=== PATIENT | male | born 1995 | race Asian ===

== ENCOUNTER 2019-09-18 09:34 | Emergency (ER) | payer OTHER ==
[2019-09-18 09:40] VITALS: BP 155/96
--- NOTE | 2019-09-18 10:20 | ED ---
Lower Extremity - HPI Summary HPI Summary: This patient is a 23 year old M presenting to ED with a chief complaint of left ankle pain with swelling since three days ago. Patient was rock-climbing indoors and reports falling off the wall about 8 feet and landing awkwardly on the foot with twisting medially. He denies any pain in the back, legs, neck, or anywhere else. The patient rates the pain 4/10 in severity. Symptoms aggravated by nothing. Symptoms alleviated by nothing. Patient denies fever. - History of Current Complaint Chief Complaint: EDExtremityLower Stated Complaint: LEFT ANKLE INJURY PER PT Time Seen by Provider: 09/18/19 10:12 Hx Obtained From: Patient Mechanism Of Injury: Fall From Height Of: - 8 feet Onset of Pain: Immediate, Post Accident Onset/Duration: Still Present - Since 3 days ago Severity Initially: Moderate Severity Currently: Moderate Pain Intensity: 4 Pain Scale Used: 0-10 Numeric Timing: Constant, Lasting Days - Since 3 days ago Location: Is Discrete @ - Left ankle Associated Signs And Symptoms: Positive: Negative - Back pain. leg pain, neck pain, Swelling. Negative: Fever, Knee Pain Aggravating Factor(s): Nothing Alleviating Factor(s): Nothing Able to Bear Weight: Yes - Allergies/Home Medications Allergies/Adverse Reactions: Allergies Allergy/AdvReac Type Severity Reaction Status Date / Time No Known Allergies Allergy Verified 09/18/19 09:39 PMH/Surg Hx/FS Hx/Imm Hx Endocrine/Hematology History: Denies: Hx Diabetes Cardiovascular History: Denies: Hx Hypercholesterolemia, Hx Hypertension Sensory History: Denies: Hx Legally Blind, Hx Deafness Opthamlomology History: Denies: Hx Legally Blind EENT History: Denies: Hx Deafness - Surgical History Surgery Procedure, Year, and Place: Denies Infectious Disease History: No Infectious Disease History: Denies: Traveled Outside the [place] in Last 30 Days - Family History Known Family History: Positive: Diabetes - Social History Alcohol Use: Occasionally Hx Substance Use: No Substance Use Type: Reports: None Hx Tobacco Use: No Smoking Status (MU): Never Smoked Tobacco Review of Systems Negative: Fever Musculoskeletal: Negative - Back, leg, or neck pain, Other - Left ankle pain All Other Systems Reviewed And Are Negative: Yes Physical Exam - Summary Physical Exam Summary: VITAL SIGNS: Reviewed. GENERAL: Patient is a well-developed and nourished male who is lying comfortable in the stretcher. Patient is not in any acute respiratory distress. HEAD AND FACE: No signs of trauma. No ecchymosis, hematomas or skull depressions. No sinus tenderness. EYES: PERRLA, EOMI x 2, No injected conjunctiva, no nystagmus. EARS: Hearing grossly intact. Ear canals and tympanic membranes are within normal limits. MOUTH: Oropharynx within normal limits. NECK: Supple, trachea is midline, no adenopathy, no JVD, no carotid bruit, no c- spine tenderness, neck with full ROM. CHEST: Symmetric, no tenderness at palpation. LUNGS: Clear to auscultation bilaterally. No wheezing or crackles. CVS: Regular rate and rhythm, S1 and S2 present, no murmurs or gallops appreciated. ABDOMEN: Soft, non-tender. No signs of distention. No rebound, no guarding, and no masses palpated. Bowel sounds are normal. EXTREMITIES: Swelling and tenderness around the left lateral malleolus. Good pulses and good capillary refill. NEURO: Alert and oriented x 3. No acute neurological deficits. Speech is normal and follows commands. SKIN: Dry and warm. Triage Information Reviewed: Yes Vital Signs On Initial Exam: Initial Vitals Temp Pulse Resp BP Pulse Ox 97.9 F 74 16 155/96 99 09/18/19 09:37 09/18/19 09:37 09/18/19 09:37 09/18/19 09:37 09/18/19 09:37 Vital Signs Reviewed: Yes Procedures - Sedation Patient Received Moderate/Deep Sedation with Procedure: No Diagnostics - Vital Signs Vital Signs Temp Pulse Resp BP Pulse Ox 09/18/19 09:37 97.9 F 74 16 155/96 99 - Laboratory Lab Statement: Any lab studies that have been ordered have been reviewed, and results considered in the medical decision making process. - Radiology L ankle XR Radiology Interpretation Completed By: Radiologist Summary of Radiographic Findings: Soft tissue swelling with no fracture identified. Dr. Gates has reviewed this radiology report. L foot XR Radiology Interpretation Completed By: Radiologist Summary of Radiographic Findings: SOFT TISSUE SWELLING ABOUT THE ANKLE. NO FRACTURE IDENTIFIED. Dr. Gates has reviewed this radiology report. Re-Evaluation - Re-Evaluation First Eval Re-Evaluation Time: 11:46 Comment: Discussed results with patient. Patient will be discharged home with dx of left ankle sprain. Recommended ice, rest, elevate and Ibuprofen for pain. Patient understands and agrees with this plan. Lower Extremity Course/Dx - Course Assessment/Plan: This patient is a 23 year old M presenting to ED with a chief complaint of left ankle pain with swelling since three days ago. Patient was rock-climbing indoors and reports falling off the wall about 8 feet and landing awkwardly on the foot with twisting medially. He denies any pain in the back, legs, neck, or anywhere else. The patient rates the pain 4/10 in severity. Symptoms aggravated by nothing. Symptoms alleviated by nothing. Patient denies fever. Foot and ankle x ray IMPRESSION: SOFT TISSUE SWELLING ABOUT THE ANKLE. NO FRACTURE IDENTIFIED. Patient is ambulatory. Recommends Ice, rest, elevate and Ibuprofen for pain. Plan of care was discussed with the patient and understands and agrees. All questions were answered at patient satisfaction. There were no further complaints or concerns. Lung exam before discharge: CTA B/ L. Good air exchange. No wheezing or crackles heard. CVS: S1 and S2 present. No murmurs appreciated. Patient is alert and oriented x 3. Patient is hemodynamically stable. Patient will be discharged home with follow up PCP in the next 2-3 days. - Diagnoses Provider Diagnoses: Left ankle sprain Discharge ED - Sign-Out/Discharge Documenting (check all that apply): Patient Departure - Discharge - Discharge Plan Condition: Stable Disposition: HOME Patient Education Materials: Ankle Sprain (ED) Referrals: [facility] - Leroy MADRID [Primary Care Provider] - 3 Days Additional Instructions: Ice, rest, elevate and Ibuprofen for pain. FOLLOW UP WITH YOUR PRIMARY CARE PROVIDER WITHIN ONE WEEK FOR YOUR ANKLE SPRAIN. RETURN TO THE ED FOR ANY WORSENING OR NEW SYMPTOMS. - Billing Disposition and Condition Condition: STABLE Disposition: Home - Attestation Statements Document Initiated by Scribe: Yes Documenting Scribe: Jarad Oconnor Provider For Whom Noel is Documenting (Include Credential): Tommie Gates MD Scribe Attestation: Jarad Ansari, scribed for Tommie Gates MD on 09/19/19 at 0715. Scribe Documentation Reviewed: Yes Provider Attestation: The documentation as recorded by the Jarad christensen accurately reflects the service I personally performed and the decisions made by me, Tommie Gates MD Status of Scribe Document: Viewed
== END 2019-09-18 11:55 | disposition home or self-care (01) ==
LOC: ED 09:34
DX: S93.402A Sprain of unspecified ligament of left ankle, initial encounter (principal); M25.572 Pain in left ankle and joints of left foot; W19.XXXA Unspecified fall, initial encounter; Y93.31 Activity, mountain climbing, rock climbing and wall climbing; R60.9 Edema, unspecified
CPT/HCPCS: 99282